=== PATIENT | female | born 1960 | race Caucasian/White ===

== ENCOUNTER → 2018-10-04 | Outpatient (CLI) | payer OTHER ==
--- NOTE | 2018-10-04 16:26 | KCIC ---
3 views left foot HISTORY: Increasing pain in the plantar foot for 6 years. Stepped on foreign object AP lateral oblique views left foot There is mild degenerative plantar spurring of the calcaneus. The visualized osseous structures appear grossly intact. There is small radiopacities within the lateral plantar aspect of the cuboid. IMPRESSION: 1. Small radiopacities in the cuboid could be a foreign body or could be calcification from prior injury. 2. Otherwise no acute findings. Electronically signed by: Elijah Fuller III, MD (10/04/2018 4:23 PM) [facility]
== END | disposition home or self-care (01) ==
LOC: KCIC 15:56
PROVIDERS: ATTEND Family Medicine
DX: M77.32 Calcaneal spur, left foot (principal); W22.8XXA Striking against or struck by other objects, initial encounter; Y93.89 Activity, other specified; Y92.89 Other specified places as the place of occurrence of the external cause; Y99.8 Other external cause status
CPT/HCPCS: 73630

== ENCOUNTER 2019-04-14 08:56 | Day surgery (SDC) | payer MEDICAID ==
[~2019-04-14 08:56] MED LIST: HYDROmorphone 2 MG/ML VIAL IV PRN; IV RINGERS,LACTATED 1000ML 1,000 ML IV SCH; LIDOCAINE 1% PF 2 ML VIAL. ID PRN; MORPHINE SULFATE 2 MG/ML VIAL. IV PRN; ONDANSETRON PF 4 MG/2 ML VIAL. IV PRN; PROCHLORPERAZINE 10 MG/2 ML VIAL. IV PRN; fentaNYL PF VIAL 100 MCG/2 ML VIAL IV PRN
--- NOTE | 2019-04-14 09:07 | DISCH ---
DISCHARGE INSTRUCTIONS Condition on Discharge Condition on Discharge: Stable Activity After Discharge Activity Instructions for Disc: Other, see below Other activity instructions: no athletics or exercise for 6 weeks Weight Bearing Status after Di: As tolerated Diet after Discharge Diet after Discharge: Regular Wound Incision Care Wound/Incision Care: Ice to area for comfort, Keep wound/cast CDI, Change dressing Other wound/incision instructi: ok to change dressing after [address] after DC Call your doctor for: Concerns you may have Follow-Up Follow up with: Krystin in 2 wks ELOY GUPTA II, MD Apr 14, 2019 09:07
[2019-04-14] MEDS ORDERED: IV RINGERS,LACTATED 1000ML 1,000 ML IV SCH (09:45)
[2019-04-14] MEDS ORDERED: BUPIVACAINE MPF 0.5% 30 ML VIAL. ONE (11:50)
[2019-04-14] MEDS ORDERED: LIDOCAINE 1% PF 30 ML VIAL. ONE (11:50)
[2019-04-14] MEDS ORDERED: FAMOTIDINE 20 MG/2 ML VIAL ONE (11:56)
[2019-04-14] MEDS ORDERED: PROPOFOL 20 ML IV ONE (11:56)
[2019-04-14] MEDS ORDERED: ONDANSETRON PF 4 MG/2 ML VIAL. ONE (11:56)
[2019-04-14] MEDS ORDERED: KETOROLAC 30 MG/ML VIAL. ONE (11:56)
[2019-04-14] MEDS ORDERED: MIDAZOLAM HCL/PF 2 MG/2 ML VIAL. ONE (11:56)
[2019-04-14] MEDS ORDERED: LIDOCAINE 2% PF 5 ML VIAL. ONE (11:56)
[2019-04-14] MEDS ORDERED: PHENYLEPHRINE in 0.9% NACL PF 1 MG/10 ML SYRINGE. IV ONE (12:38)
--- NOTE | 2019-04-14 12:46 | PDOC4 ---
Operative Note Operative Note Date of procedure: 04/14/2019 Surgeon: Obi Brandon.: none Preoperative diagnosis: Painful hardware after ankle surgery Postoperative diagnosis: Same Procedure performed: Right ankle medial hardware removal Anesthesia: Gen. Tourniquet time: 22 min Blood loss: 5mL Findings: fibrotic tissue around hardware Components removed: steel wire, 1 screw, 2 k wires Reason for procedure: Patient is a very pleasant female who had operative fixation of an ankle fracture and had pain medially. She denied any pain or concerns laterally. She had no tenderness laterally. All of her tenderness was medial. Given the interference with her activities of daily living, we discussed hardware removal and she wished to proceed. Description of procedure: Patient was greeted in the preoperative holding area by myself for the correct extremity was verified as well as the location of her pain. Antibiotics were started and she was brought back to the operating room. Once in the operative room, she was transferred gently supine to the operating table and secured the bed with all pressure points padded. Nonsterile tourniquet was taped in place to her operative extremity. The operative extremity was prepped and draped in our usual sterile fashion and we conducted our standard preoperative timeout. Esmarch was used to exsanguinate the extremity and tourniquet insufflated to 250 mmHg. After this, I incised skin through her prior skin incision laterally and dissected subcutaneous tissue with electrocautery, cauterizing bleeders as a were encountered. Fascia was incised in line with the skin incision. I used a periosteal elevator to expose the hardware, there was fibrotic tissue that was adherent to it. I then cut the K wire and used a Rominger to remove this. Identified the screw and remove this without complication. After this, used a vice recruiting scheduler to pull the K wires. I then used a small curet to curet out the screw hole. I then irrigated out the operative field with sterile fluid. After this, I close fascia with simple interrupted 0 Vicryl. I then closed subcutaneous tissue with inverted interrupted 2-0 Vicryl followed by 3-0 nylon in a mattress fashion for skin. I then injected local anesthetic into the colten-incisional soft tissues. All counts correct 2 prior to wound closure. No complications. A soft bulky dressing was then applied. She was awakened from anesthesia and tolerated surgery well. She was then transferred gently supine to the recovery room cart and taken to PACU in a stable and x-ray condition. Postoperative plan is to allow weightbearing as tolerated, no athletics or exercises for 6 weeks. Ill see her back in 2 weeks, sooner should a problem arise. OBI GUPTA II, MD Apr 14, 2019 12:46
[2019-04-14] MEDS ORDERED: SEVOFLURANE 31 TO 60 MINUTES. IH ONE (12:53)
[2019-04-14] MEDS ORDERED: DOCU-109 PO (13:05)
[2019-04-14] MEDS ORDERED: HYDR-2765 PO (13:05)
[2019-04-14] MEDS ORDERED: ONDA8TAB9 PO/SL (13:07)
[2019-04-14] MEDS ORDERED: HYDROcodone/APAP 7.5/325MG 1 TAB TABLET PO ONE (13:30)
[2019-04-14 14:04] VITALS: BP 144/77
== END 2019-04-14 14:39 | disposition home or self-care (01) ==
LOC: SURG 08:56
PROVIDERS: ATTEND Orthopaedic Surgery Sports Medicine
DX: T84.84XA Pain due to internal orthopedic prosthetic devices, implants and grafts, initial encounter (principal); I10 Essential (primary) hypertension; E78.00 Pure hypercholesterolemia, unspecified; G62.9 Polyneuropathy, unspecified; E66.3 Overweight; Z68.27 Body mass index [BMI] 27.0-27.9, adult; Z98.890 Other specified postprocedural states; Y83.8 Other surgical procedures as the cause of abnormal reaction of the patient, or of later complication, without mention of misadventure at the time of the procedure; Y92.89 Other specified places as the place of occurrence of the external cause
CPT/HCPCS: 20680; 76000; A7015; J0690; J1885; J2001; J2250; J2370; J2405; J2704; J3010; J3490

== ENCOUNTER → 2019-08-28 | Outpatient (CLI) | payer MEDICAID ==
[~2019-08-28] MED LIST changes: +DOCU-109 PO; +HYDR-2765 PO; -HYDROmorphone 2 MG/ML VIAL IV PRN; -IV RINGERS,LACTATED 1000ML 1,000 ML IV SCH; -LIDOCAINE 1% PF 2 ML VIAL. ID PRN; -MORPHINE SULFATE 2 MG/ML VIAL. IV PRN; +ONDA8TAB9 PO/SL; -ONDANSETRON PF 4 MG/2 ML VIAL. IV PRN; -PROCHLORPERAZINE 10 MG/2 ML VIAL. IV PRN; -fentaNYL PF VIAL 100 MCG/2 ML VIAL IV PRN
--- NOTE | 2019-08-28 12:02 | RAD ---
EXAM: Brain MRI without contrast. HISTORY: Epilepsy. TECHNIQUE: Multiplanar, multisequence magnetic resonance imaging of the brain was performed without contrast. COMPARISON: None. FINDINGS: There is no restricted diffusion to suggest acute or subacute infarction. There is no susceptibility effect to suggest hemorrhage. There is no mass effect or midline shift. There is no hydrocephalus. There are few tiny foci of signal change within the cerebral white matter, most commonly due to chronic small vessel disease in patients of this age. The orbits are unremarkable. There is severe left and mild right maxillary and moderate bilateral ethmoid sinus mucosal thickening. There are maxillary sinus mucous retention cyst. There is a tiny air-fluid level within the sphenoid sinus. There is a small amount of fluid the mastoid air cells. There are normal flow voids within the cerebral vessels. There is slight subependymoma nodularity on axial images which is due to imaging artifact. No heterotopia is seen. There is slight relative decreased size of the left hippocampus. IMPRESSION: 1. No acute intracranial finding. 2. Few tiny foci of signal change within the cerebral white matter. This is most commonly due to chronic small vessel disease in patients of this age. 3. Slight relative decreased size of the left hippocampus. This is only appreciated on coronal T2-weighted images. No corresponding signal abnormality is seen. However, the possibility of mesial temporal sclerosis is not completely excluded in this patient with reported epilepsy. Correlate with EEG localizing findings. Electronically signed by: Swetha Garcia MD (08/28/2019 11:59 AM) [id number]
== END | disposition home or self-care (01) ==
LOC: MRI 11:09
PROVIDERS: ATTEND Psychiatry & Neurology Neurology with Special Qualifications in Child Neurology
DX: I67.89 Other cerebrovascular disease (principal); G40.409 Other generalized epilepsy and epileptic syndromes, not intractable, without status epilepticus; D43.2 Neoplasm of uncertain behavior of brain, unspecified; J34.89 Other specified disorders of nose and nasal sinuses; J34.1 Cyst and mucocele of nose and nasal sinus
CPT/HCPCS: 70551

== ENCOUNTER → 2019-08-29 | Outpatient (CLI) | payer MEDICAID ==
--- NOTE | 2019-08-29 11:29 | EEG ---
DATE OF SERVICE: 08/29/2019 EEG NUMBER: [id number]. OBJECTIVE: The patient is a 59-year-old female with history of tremors and possible seizures, suspicion of nonepileptic seizures. DESCRIPTION: This is a digital study. Electrodes are placed according to international 10-20 system. Bipolar and referential montages are available. Activation procedures typically include hyperventilation and intermittent photic stimulation. INTERPRETATION: The waking background consists of 9-10 Hz, 50-100 microvolt activity, symmetrically distributed over parietooccipital regions and reactive to eye opening. Hyperventilation and intermittent photic stimulation are noncontributory. Stage 1 sleep is achieved with normal electroencephalogram patterns. All computer identified abnormalities are reviewed in detail and none are truly abnormal. IMPRESSION: This electroencephalogram with the patient awake and asleep is within normal limits. There is no focal, paroxysmal or epileptiform activity. Thank you for letting us help with the patient's care. KEYON FOSTER MD DR: ISATU/daniel JOB#: [id number] / [id number]
== END | disposition home or self-care (01) ==
LOC: RT 09:35
PROVIDERS: ATTEND Psychiatry & Neurology Neurology with Special Qualifications in Child Neurology
DX: G40.309 Generalized idiopathic epilepsy and epileptic syndromes, not intractable, without status epilepticus (principal)
CPT/HCPCS: 95816

== ENCOUNTER 2020-01-10 23:41 | Inpatient (IN) | payer MEDICAID ==
[~2020-01-10] VITALS: Ht 170.2 cm; Wt 78.5 kg
[2020-01-10 23:58] LABS: BASO % 0 % (0-3); EOS % 0 % (0-3); HEMOGLOBIN 12.6 g/dL (12.0-15.5); LYMPH % 9 % (24-48); MEAN CORPUSCULAR HEMOGLOBIN 31 pg (25-35); MEAN CORPUSCULAR HGB CONC 34 g/dL (31-37); MEAN CORPUSCULAR VOLUME 91 fL (79-100); MONO # 0.8 x10^3/uL (0.0-1.1); MONO % 7 % (0-9); NEUT % 83 % (31-73); PLATELET COUNT 169 x10^3/uL (140-400); RED BLOOD COUNT 4.07 x10^6/uL (3.50-5.40); RED CELL DISTRIBUTION WIDTH 13.9 % (11.5-14.5); WHITE BLOOD COUNT 10.8 x10^3/uL (4.0-11.0)
--- NOTE | 2020-01-11 00:08 | PHYS DOC ---
Past Medical History Past Medical History: Seizure Past Medical History Limited secondary to altered mental status/post-ictal state Past Surgical History Limited secondary to altered mental status/post-ictal state Social History Limited secondary to altered mental status/post-ictal state General Adult EDM: Chief Complaint: SEIZURE HPI: HPI: Patient is a 59 year old female with pmh of seizure disorder presents via EMS wi th report of active seizures since 2100 this evening. EMS reports family reported that patient had approximately "20 seizures" prior to them calling EMS. EMS reports patient was post-ictal upon their arrival. Patient subsequently started to have some seizure like activity at which time EMS gave 5mg of Versed. No further seizure like activity. EMS reports patient with significantly decreased mentation since giving Versed. EMS unclear what medications patient is on or if she is compliant with them. NO history of known trauma. History of present illness limited secondary to altered mental status/post-ictal state Review of Systems: Review of Systems: Review of systems limited secondary to altered mental status/post-ictal state Current Medications: Current Medications Medications (Trade) Dose Ordered Sig/Roxanne Start Time Stop Time Status Last Admin Dose Admin Sodium Chloride 1,000 ml @ 1,000 mls/hr 1X ONCE 01/11/20 00:00 01/11/20 00:59 Allergies: Allergies: Allergies Coded Allergies Type Severity Reaction Last Updated Verified No Known Drug Allergies 04/14/19 No Physical Exam: PE: Constitutional: Well developed, well nourished, obtunded HENT: Normocephalic, atraumatic, oropharynx moist, gag intact Eyes: Pupils pinpoint, conjunctiva normal, no discharge Neck: Normal range of motion, supple Lungs & Thorax: No respiratory distress, equal chest rise and fall Abdomen: Soft, no tenderness Skin: Warm, dry, no erythema, no rash Extremities: No deformity, no edema Neurologic: GCS 8 (eye1, verbal 2, motor 5), sedated Psychologic: Limited given altered mental status, judgment abnormal Current Patient Data: Labs: Laboratory Tests Test 01/10/20 23:50 White Blood Count 10.8 x10^3/uL (4.0-11.0) Red Blood Count 4.07 x10^6/uL (3.50-5.40) Hemoglobin 12.6 g/dL (12.0-15.5) Hematocrit 37.0 % (36.0-47.0) Mean Corpuscular Volume 91 fL (79-100) Mean Corpuscular Hemoglobin 31 pg (25-35) Mean Corpuscular Hemoglobin Concent 34 g/dL (31-37) Red Cell Distribution Width 13.9 % (11.5-14.5) Platelet Count 169 x10^3/uL (140-400) Neutrophils (%) (Auto) 83 % (31-73) H Lymphocytes (%) (Auto) 9 % (24-48) L Monocytes (%) (Auto) 7 % (0-9) Eosinophils (%) (Auto) 0 % (0-3) Basophils (%) (Auto) 0 % (0-3) Neutrophils # (Auto) 9.0 x10^3/uL (1.8-7.7) H Lymphocytes # (Auto) 1.0 x10^3/uL (1.0-4.8) Monocytes # (Auto) 0.8 x10^3/uL (0.0-1.1) Eosinophils # (Auto) 0.0 x10^3/uL (0.0-0.7) Basophils # (Auto) 0.0 x10^3/uL (0.0-0.2) Laboratory Tests 01/10/20 23:50 EKG: EKG: @2359 Sinus tachycardia at 103bpm, NO ST elevation, QRS 76ms, QT/QTc 320/421ms Radiology/Procedures: Radiology/Procedures: PROCEDURE: CT HEAD WO CONTRAST INDICATION: Reason: frequent seizure like activity / Spl. Instructions: / History: COMPARISON: MRI from August 28, 2019 TECHNIQUE: Axial CT images obtained through the head without intravenous contrast. One or more of the following individualized dose reduction techniques were utilized for this examination: 1. Automated exposure control; 2. Adjustment of the mA and/or kV according to patient size; 3. Use of iterative reconstruction technique. FINDINGS: No intracranial hemorrhage. No midline shift. Basal cisterns patents. Ventricles and sulci are globally prominent. No acute osseous abnormality. Opacification partially seen right maxillary sinus. Scattered foci of low attenuation within the white matter. IMPRESSION: 1. No acute intracranial hemorrhage. 2. Scattered regions of low attenuation within the white matter. Non-specific in nature but frequently secondary to chronic small vessel ischemic disease. 3. Prominence of ventricles and sulci which is frequently secondary to age related volume loss. Electronically signed by: Moe Portillo MD (01/11/2020 12:47 AM) [id number] Course & Med Decision Making: Course & Med Decision Making Pertinent Labs and Imaging studies reviewed. (See chart for details) Patient presents via EMS with report of multiple seizures that started at approximately 2100. Patient apparently has history of seizure disorder. It is unclear what medication she is currently treated nor if she is compliant. Patient appears sedated upon arrival. History of patient receiving 5 mg of Versed prior to arrival. Mentation limited. CT head without acute process. EKG stable. Labs obtained and posted to chart. Lactic acid elevated consistent for seizure activity. Hypomagnesemia addressed. Valproic acid in therapeutic range. Patient with some improvement of mentation, however still appears post-ictal. Given reported number of seizures in short period of time and prolonged post- ictal state, will admit patient for further evaluation and neurology consultation. Patient requiring admission for further evaluation and treatment. Discussed with Dr. Borges (hospitalist) who is in agreement with admission. Consult placed for neurology. Discussed findings and plan with family, who acknowledge understanding and agreement. Wilson Disclaimer: Wilson Disclaimer: This electronic medical record was generated, in whole or in part, using a voice recognition dictation system. Departure Departure Impression: Primary Impression: Breakthrough seizure Additional Impressions: Hypomagnesemia Lactic acidosis Disposition: ADMITTED INPATIENT Admitting Physician: WANDA (Jony) Condition: STABLE Referrals: AYDEN KHANNA MD (PCP) Justicifation of Admission Dx: Justifications for Admission: Justification of Admission Dx: Yes Comments: Breakthrough Seizures TYLER KEARNEY DO Jan 11, 2020 00:08
[2020-01-11 00:09] LABS: CALCIUM 8.8 mg/dL (8.5-10.1); CREATININE 0.7 mg/dL (0.6-1.0); GFR 85.4; POTASSIUM 3.6 mmol/L (3.5-5.1)
[2020-01-11 00:15] LABS: ALBUMIN 3.8 g/dL (3.4-5.0); ALBUMIN/GLOBULIN RATIO 1.2 (1.0-1.7); MAGNESIUM 1.6 mg/dL (1.8-2.4); TOTAL BILIRUBIN 0.4 mg/dL (0.2-1.0); TOTAL PROTEIN 7.1 g/dL (6.4-8.2)
[2020-01-11 00:21] LABS: BILIRUBIN,URINE NEGATIVE (NEG); CLARITY,URINE CLEAR; COLOR,URINE YELLOW; NITRITE,URINE NEGATIVE (NEG); PROTEIN,URINE >=300 mg/dL (NEG-TRACE); UROBILINOGEN,URINE 0.2 mg/dL (0.2 mg/dL)
[2020-01-11 00:36] LABS: SQUAMOUS EPITHELIAL CELL,UR FEW /LPF
[2020-01-11 00:37] LABS: AMORPHOUS SEDIMENT,UR PRESENT /HPF; BACTERIA,URINE 0 /HPF (0-FEW); HYALINE CASTS, URINE MODERATE /HPF; RBC,URINE RARE /HPF (0-2); WBC,URINE 0 /HPF (0-4)
--- NOTE | 2020-01-11 00:50 | RAD ---
INDICATION: Reason: frequent seizure like activity / Spl. Instructions: / History: COMPARISON: MRI from August 28, 2019 TECHNIQUE: Axial CT images obtained through the head without intravenous contrast. One or more of the following individualized dose reduction techniques were utilized for this examination: 1. Automated exposure control; 2. Adjustment of the mA and/or kV according to patient size; 3. Use of iterative reconstruction technique. FINDINGS: No intracranial hemorrhage. No midline shift. Basal cisterns patents. Ventricles and sulci are globally prominent. No acute osseous abnormality. Opacification partially seen right maxillary sinus. Scattered foci of low attenuation within the white matter. IMPRESSION: 1. No acute intracranial hemorrhage. 2. Scattered regions of low attenuation within the white matter. Non-specific in nature but frequently secondary to chronic small vessel ischemic disease. 3. Prominence of ventricles and sulci which is frequently secondary to age related volume loss. Electronically signed by: Moe Portillo MD (01/11/2020 12:47 AM) [id number]
[2020-01-11] MEDS ORDERED: ONDANSETRON PF 4 MG/2 ML VIAL. IV PRN (01:00)
[2020-01-11] MEDS ORDERED: IV NORMAL SALINE 1000ML BAG 1,000 ML IV ONE ×3 (01:00→01:30)
[2020-01-11] MEDS ORDERED: MAGNESIUM SULFATE 2GM 50 ML IV ONE (01:00)
[2020-01-11 01:08] LABS: VAL ACID 55 mcg/mL (50-100)
--- NOTE | 2020-01-11 02:05 | NUR ---
The patient, MILO BIRMINGHAM, 59 y/o, F admitted by GABBY GRAF MD, was given written information regarding hospital policies, unit procedures and contact persons. Valuables were checked and placed in closet. Pt awakens to stimuli, but quickly falls back to sleep. Pt unable to complete med rec at this time. Seizure precautions in place. Will monitor.
[2020-01-11 03:00] VITALS: BP 107/53
[2020-01-11 07:59] VITALS: BP 145/66
[2020-01-11 11:59] VITALS: BP 133/73
--- NOTE | 2020-01-11 12:48 | SSS ---
ADMIT DATE: 01/11/2020 CHIEF COMPLAINT: Seizure. HISTORY OF PRESENT ILLNESS: The patient is a pleasant 59-year-old female who has had seizures for many years. She is on valproic acid for that. Basically, she had 20 seizures yesterday. They finally called the ambulance. When she got the ambulance, she had no seizure. They gave her 5 of Versed. She has had no more seizures since, but she is very postictal. The patient has been admitted. We are consulting Neurology. We are going to be adjusting her seizure medications. PAST MEDICAL HISTORY: Seizures, arthritis, constipation. ALLERGIES: None. FAMILY HISTORY: Diabetes. SOCIAL HISTORY: She does not drink, smoke or take drugs. MEDICATIONS: Reviewed, please refer to the MRAD. REVIEW OF SYSTEMS: Unable to obtain. The patient is postictal. PHYSICAL EXAMINATION: VITALS: Within normal limits and are stable. GENERAL: She is sleeping. HEENT: Normal cephalic atraumatic, external auditory canals are patent EYES: Extraocular muscles are intact, pupils are equally round and reactive to light and accommodation MUSCULOSKELETAL: Well developed, well nourished, good range of motion ENDOCRINE: No thyromegaly was palpated LYMPHATICS: No cervical chain or axillary nodes were noted HEMATOPOIETIC: No bruising NECK: Supple, no JVD, no thyromegaly was noted. LUNGS: Clear to auscultation in all lung davis without rhonchi or wheezing. HEART: RRR, S1, S2 present. Peripheral pulses intact, no obvious murmurs were noted. ABDOMEN: Soft, nontender. Positive bowel sounds no organomegaly, normal bowel sounds. EXTREMITIES: Without any cyanosis, clubbing, or edema. Pedal pulses intact, Homans sign is negative. NEUROLOGIC: She really does not respond much other than open her eyes briefly. PSYCHIATRIC: She is sleeping. SKIN: No ulcerations or rashes, good skin turgor, no jaundice. VASCULAR: Good capillary refill, neurovascular bundle appears to be intact. IMAGING: CT of the head, no acute changes. LABORATORY DATA: White count 10, hemoglobin 12, platelets 169. Electrolytes are normal other than sodium of 132, chloride of 96 and glucose of 179. Lactic acid was slightly high at 2.2, is back down to 1.2 now. Magnesium slightly low at 1.6. ASSESSMENT AND PLAN: Acute on chronic seizures with finding of some hypomagnesemia, hyponatremia and mild lactic acidosis. Basically, we need to admit the patient and do some seizure precautions. Adjust her meds. Consult Neurology. Home medications, deep vein thrombosis prophylaxis. Full code. Replace her magnesium. I discussed the case with the family and the nurse. AMBER BAUTISTA DO DR: FERNANDA/daniel JOB#: [id number] / [id number]
[2020-01-11 15:59] VITALS: BP_SYST 105; BP_SYST 152; BP_DIAS 66; BP_DIAS 72
[2020-01-11 19:00] VITALS: BP 148/73
[2020-01-11] MEDS: DIVALPROEX DELAYED RELEASE 500 MG TABLET.DR. PO SCH (20:03)
--- NOTE | 2020-01-11 20:10 | CONS ---
DATE OF CONSULTATION: 01/11/2020 REFERRING PHYSICIAN: Ya Nieto DO REASON FOR CONSULTATION: Recurrent status epilepticus. HISTORY OF PRESENT ILLNESS: The patient is a 59-year-old woman with a long history of seizures for which she has been maintained on Depakote. According to family, she had 20 seizures today, although no family members are available to provide a description. They called an ambulance. When the ambulance arrived, she was not seizing. They gave her 5 of Versed. She has had no further seizures since being admitted. According to the nurse when she was admitted earlier this morning, she was very out of it and postictal, but this could have been Versed. She has not had any further seizures reported today. She did have a Depakote level, which was low therapeutic at 55. She has not had any further Depakote today. PAST MEDICAL HISTORY: 1. Seizure disorder. 2. Arthritis. 3. Constipation. ALLERGIES: No known allergies to drugs. MEDICATIONS PRIOR TO ADMISSION: We do not have a complete list at this time, but according to the nursing staff, she is waiting for confirmation from the family to get a look at the pill bottles. They believe she is on Depakote 500 mg 3 times per day. FAMILY HISTORY: Pertinent for diabetes. SOCIAL HISTORY: She does not smoke tobacco, drink alcohol or use recreational drugs. REVIEW OF SYSTEMS: Unobtainable. PHYSICAL EXAMINATION: VITAL SIGNS: The blood pressure was 152/66, pulse 99, respirations 18, temperature 98.5 orally degrees Fahrenheit. Oximetry was 98% on room air. Her weight was 78.5 kilograms, height 67 inches with a calculated body mass index of 27.1. GENERAL: She was alert, awake and cooperative. She spoke Welsh. She seemed somewhat bewildered, but was quite alert and interactive and willing to cooperate. She was able to sit on the side of the bed and had good balance. She appeared well groomed and well nourished. NEUROLOGIC: Examination of the cranial nerves revealed visual davis appeared intact to visual threat. Extraocular movements were intact. The eyes were conjugate. Pupils were 3 mm. Funduscopic exam did not reveal papilledema. Facial sensation was intact to sharp. The muscles of mastication and facial expression were symmetric. Hearing was intact to finger rub. The palate arched symmetrically and the tongue was midline with full motion. Shoulder shrug was symmetric. Muscle bulk and tone was normal. There was no drift. Power appeared full and symmetric. Reflexes 2/4 and symmetric in the upper extremities, diminished in knees and ankles. Toes were not upgoing. Coordination testing with [id number] was well performed. Fine motor tapping was also symmetric and well performed. Sensory exam was intact to sharp, cold thermal, vibration and light touch. LABORATORY RESULTS: CBC was performed 01/10/2020 revealing a normal white blood cell count, hemoglobin, hematocrit and platelet count. Chemistries were performed 01/10/2020. Sodium was low at 132. Potassium was normal. Chloride was low at 96, CO2 was normal. BUN and creatinine were normal with a GFR that calculated at 85.4. Glucose was elevated at 179. Calcium was normal. Lactic acid was initially elevated at 2.2, but this came down to 1.2. Magnesium was low at 1.6. Liver enzymes were not elevated. Total protein and albumin were normal. Depakote level was measured 01/10/2020 at 2350 and was 55. Urinalysis was performed 01/11/2020 revealing greater than 300 mg/dL of protein, 15 ketones, trace blood, rare red blood cells, few squamous epithelial cells and moderate hyaline casts. IMAGING: A CT scan of the head was performed 01/11/2020 without contrast and compared to 08/28/2019. She had no acute intracranial process. There was some chronic small vessel disease. There was some age-related atrophy. IMPRESSION: The patient is a 59-year-old woman with a seizure disorder, which is treated with Depakote. According to family, she had 20 seizures today, although I do not have a description of the seizures. She did have elevated lactic acidosis, which has normalized. She was therapeutic on Depakote, but at the lower end. Neurologic exam was nonfocal. CT scan of the head was negative. RECOMMENDATIONS: If in fact she was on Depakote 1500 per day, then I will increase this to 2000 mg a day. We can use the sustained release instead of the extended release into 1000 mg twice per day. I will give her 1000 mg now and resume 1000 mg twice a day starting in the morning. Depakote level could be obtained in a week or 10 days once at steady state to make sure she is not getting supratherapeutic. She can always follow up with Neurology as an outpatient. EDUARDO CARLSON MD DR: RANDELL/daniel JOB#: [id number] / [id number]
[2020-01-11] MEDS ORDERED: ATOR20TA58 PO (20:13)
[2020-01-11] MEDS ORDERED: LISI-334 PO (20:13)
[2020-01-11] MEDS ORDERED: DIVA500T2 PO (20:13)
[2020-01-11 23:03] VITALS: BP 161/87
[2020-01-12 03:04] VITALS: BP 149/76
[2020-01-12 07:00] VITALS: BP 137/78
[2020-01-12] MEDS: DIVALPROEX DELAYED RELEASE 500 MG TABLET.DR. PO SCH (08:43)
--- NOTE | 2020-01-12 09:44 | PDOC ---
PROGRESS NOTES Assessment Problems Medical Problems: (1) Breakthrough seizure Status: Acute (2) Lactic acidosis Status: Acute Possible seizures, note that she most likely has psychogenic nonepileptic seizure based on prior workup.MRI on 08/28/19 was negative, EEG on 08/29/19 was negative, she also had workup in [place], but I never received the actual record History of intellectual disability. Lactic acidosis, which raises concern that she actually had seizures. Plan Okay for discharge on the higher Depakote dose Family to call me if she develops any symptoms of toxicity. Follow-up with me in 4-6 weeks. Subjective Denies complaints Objective Vital Signs Date Time Temp Pulse Resp B/P (MAP) Pulse Ox O2 Delivery O2 Flow Rate FiO2 01/12/20 08:00 Room Air 01/12/20 07:00 98.7 82 17 137/78 (97) 99 98.7 Intake and Output 01/12/20 07:00 Intake Total 1620 ml Balance 1620 ml Intake Oral 620 ml IV Total 1000 ml # Voids 4 PHYSICAL EXAM Alert. Oriented only to person, speaks only Liberian. PERRL. EOMI. CN: no focal findings. Muscle tone: normal. Muscle strength: 4/5 DTR: 1+ Plantar reflex: flexor Gait: not examined in bed. Sensory exam: no abnormal findings. No cerebellar signs elicited. Review of Relevant I have reviewed the following items cornelius (where applicable) has been applied. Labs Laboratory Tests Test 01/10/20 23:50 01/11/20 00:12 01/11/20 03:20 White Blood Count 10.8 x10^3/uL (4.0-11.0) Red Blood Count 4.07 x10^6/uL (3.50-5.40) Hemoglobin 12.6 g/dL (12.0-15.5) Hematocrit 37.0 % (36.0-47.0) Mean Corpuscular Volume 91 fL (79-100) Mean Corpuscular Hemoglobin 31 pg (25-35) Mean Corpuscular Hemoglobin Concent 34 g/dL (31-37) Red Cell Distribution Width 13.9 % (11.5-14.5) Platelet Count 169 x10^3/uL (140-400) Neutrophils (%) (Auto) 83 % (31-73) Lymphocytes (%) (Auto) 9 % (24-48) Monocytes (%) (Auto) 7 % (0-9) Eosinophils (%) (Auto) 0 % (0-3) Basophils (%) (Auto) 0 % (0-3) Neutrophils # (Auto) 9.0 x10^3/uL (1.8-7.7) Lymphocytes # (Auto) 1.0 x10^3/uL (1.0-4.8) Monocytes # (Auto) 0.8 x10^3/uL (0.0-1.1) Eosinophils # (Auto) 0.0 x10^3/uL (0.0-0.7) Basophils # (Auto) 0.0 x10^3/uL (0.0-0.2) Sodium Level 132 mmol/L (136-145) Potassium Level 3.6 mmol/L (3.5-5.1) Chloride Level 96 mmol/L (98-107) Carbon Dioxide Level 26 mmol/L (21-32) Anion Gap 10 (6-14) Blood Urea Nitrogen 9 mg/dL (7-20) Creatinine 0.7 mg/dL (0.6-1.0) Estimated GFR (Cockcroft-Gault) 85.4 BUN/Creatinine Ratio 13 (6-20) Glucose Level 179 mg/dL (70-99) Lactic Acid Level 2.2 mmol/L (0.4-2.0) 1.2 mmol/L (0.4-2.0) Calcium Level 8.8 mg/dL (8.5-10.1) Magnesium Level 1.6 mg/dL (1.8-2.4) Total Bilirubin 0.4 mg/dL (0.2-1.0) Aspartate Amino Transf (AST/SGOT) 18 U/L (15-37) Alanine Aminotransferase (ALT/SGPT) 25 U/L (14-59) Alkaline Phosphatase 61 U/L (46-116) Creatine Kinase 103 U/L (26-192) Total Protein 7.1 g/dL (6.4-8.2) Albumin 3.8 g/dL (3.4-5.0) Albumin/Globulin Ratio 1.2 (1.0-1.7) Valproic Acid (Depakene) Level 55 mcg/mL (50-100) Valproic Acid Last Dose Date Unk Valproic Acid Last Dose Time Unk Urine Collection Type Unknown Urine Color Yellow Urine Clarity Clear Urine pH 5.0 (<5.0-8.0) Urine Specific [place] 1.020 (1.000-1.030) Urine Protein >=300 mg/dL (NEG-TRACE) Urine Glucose (UA) Negative mg/dL (NEG) Urine Ketones (Stick) 15 mg/dL (NEG) Urine Blood Trace (NEG) Urine Nitrite Negative (NEG) Urine Bilirubin Negative (NEG) Urine Urobilinogen Dipstick 0.2 mg/dL (0.2 mg/dL) Urine Leukocyte Esterase Negative (NEG) Urine RBC Rare /HPF (0-2) Urine WBC 0 /HPF (0-4) Urine Squamous Epithelial Cells Few /LPF Urine Amorphous Sediment Present /HPF Urine Bacteria 0 /HPF (0-FEW) Urine Hyaline Casts Moderate /HPF Urine Mucus Mod /LPF Medications Current Medications Sodium Chloride 1,000 ml @ 1,000 mls/hr 1X ONCE IV Last administered on 01/11/20at 00:09; Start 01/11/20 at 00:00; Stop 01/11/20 at 00:59; Status DC Sodium Chloride 1,000 ml @ 1,000 mls/hr 1X ONCE IV Last administered on 01/11/20at 01:11; Start 01/11/20 at 01:00; Stop 01/11/20 at 01:59; Status DC Magnesium Sulfate 50 ml @ 25 mls/hr 1X ONCE IV Last administered on 01/11/20at 01:10; Start 01/11/20 at 01:00; Stop 01/11/20 at 02:59; Status DC Ondansetron HCl (Zofran) 4 mg PRN Q8HRS PRN IV NAUSEA/VOMITING 1ST CHOICE; Start 01/11/20 at 01:00; Stop 01/12/20 at 00:59; Status DC Sodium Chloride 1,000 ml @ 100 mls/hr 1X ONCE IV Last administered on 01/11/20at 02:13; Start 01/11/20 at 01:30; Stop 01/11/20 at 11:29; Status DC Divalproex Sodium (Depakote) 1,000 mg BID PO Last administered on 01/12/20at 08:4 3; Start 01/11/20 at 21:00 Active Scripts Active Reported Atorvastatin Calcium 20 Mg Tablet 1 Tab PO DAILY Lisinopril 20 Mg Tablet 1 Tab PO DAILY Depakote (Divalproex Sodium) 500 Mg Tablet.dr 500 Mg PO TID Zofran (Ondansetron Hcl) 8 Mg Tablet 8 Mg PO/SL Q8HRS PRN Colace (Docusate Sodium) 100 Mg Capsule 1 Cap PO BID 30 Days Hydrocodone-Apap 7.5-325 (Hydrocodone Bit/Acetaminophen) 1 Tab Tablet 1 Tab PO Q4HRS PRN Vitals/I & O Vital Sign - Last 24 Hours 01/11/20 01/11/20 01/11/20 01/11/20 11:59 15:59 19:00 19:10 Temp 98.2 98.5 97.4 98.2 98.5 97.4 Pulse 101 99 110 Resp 18 18 20 B/P (MAP) 133/73 (93) 152/66 (94) 148/73 (98) Pulse Ox 98 98 100 O2 Delivery Room Air Room Air Room Air Room Air 01/11/20 01/12/20 01/12/20 01/12/20 23:03 03:04 07:00 08:00 Temp 97.7 98.3 98.7 97.7 98.3 98.7 Pulse 108 91 82 Resp 18 18 17 B/P (MAP) 161/87 (111) 149/76 (100) 137/78 (97) Pulse Ox 97 96 99 O2 Delivery Room Air Room Air Room Air Room Air Intake and Output 01/11/20 01/11/20 01/12/20 15:00 23:00 07:00 Intake Total 1220 ml 200 ml 200 ml Balance 1220 ml 200 ml 200 ml Justicifation of Admission Dx: Justifications for Admission: Justification of Admission Dx: Yes KEYON FOSTER MD Jan 12, 2020 09:44
--- NOTE | 2020-01-12 10:01 | PDOC ---
[facility] PROGRESS NOTE Chief Complaint Chief Complaint Seizures Hypomagnesemia History of Present Illness History of Present Illness 01/12/20 Patient seen and examined Discussed with RN Chart reviewed Vitals/I&O Vitals/I&O: Vital Signs Date Time Temp Pulse Resp B/P (MAP) Pulse Ox O2 Delivery O2 Flow Rate FiO2 01/12/20 08:00 Room Air 01/12/20 07:00 98.7 82 17 137/78 (97) 99 98.7 I & O 01/11/20 01/11/20 01/12/20 15:00 23:00 07:00 Intake Total 1220 ml 200 ml 200 ml Balance 1220 ml 200 ml 200 ml Physical Exam General: Alert, No acute distress Heart: Regular rate Lungs: Clear Extremities: Normal pulses Skin: No significant lesion Assessment and Plan Assessmemt and Plan Problems Medical Problems: (1) Breakthrough seizure Status: Acute (2) Lactic acidosis Status: Acute Assessment: Seizures Status epilepticus Hypomagnesemia Elevated lactic acid Plan: Okay for discharge Depakote dose adjustment Full code Follow up with Dr. Quan in 4-6 wks Appreciate Subspecialist input Comment Review of Relevant I have reviewed the following items cornelius (where applicable) has been applied. Medications: Current Medications Medications (Trade) Dose Ordered Sig/Roxanne Route PRN Reason Start Time Stop Time Status Last Admin Dose Admin Divalproex Sodium (Depakote) 1,000 mg BID PO 01/11/20 21:00 01/12/20 08:43 Justicifation of Admission Dx: Justifications for Admission: Justification of Admission Dx: Yes AMBER BAUTISTA III, DO Jan 12, 2020 10:01
--- NOTE | 2020-01-12 10:11 | NUR ---
SW following. Discussed with RN, pt from home with family, room air, cardiac diet, SBA. RN advised no SW needs, anticipate discharge home today. SW will continue to follow, should any discharge needs arise.
[2020-01-12] MEDS ORDERED: DIVA500T2 PO (10:17)
[2020-01-12 11:00] VITALS: BP 145/69
--- NOTE | 2020-01-12 13:34 | NUR ---
Discharge Note: PT DISCHARGED HOME WITH SELF CARE. PT LEFT FACILITY VIA PRIVATE VEHICLE WITH FAMILY MEMBERS. PT STABLE AND ALERT UPON DISCHARGE. PT PIV'S REMOVED FROM L WRIST AND R FA WITHOUT COMPLICATIONS, BANDAGE APPLIED, TELE MONITOR REMOVED. PT FAMILY EDUCATED ABOUT DISCHARGE INSTRUCTIONS, DISCHARGE MEDICATIONS, AND FOLLOW-UP CARE. FAMILY MEMBER TRANSLATED AT BEDSIDE. NO CONCERNS VOICED AT THIS TIME. ALL QUESTIONS ANSWERED UPON DISCHARGE. MATILDE BIRMINGHAM Discharge instructions and discharge home medications reviewed with Patient and a copy given. All questions have been answered and understanding verbalized.
--- NOTE | 2020-01-13 06:46 | EKG ---
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
--- NOTE | 2020-01-13 08:43 | DS ---
DATE OF DISCHARGE: 01/12/2020 ADMISSION DIAGNOSIS: Seizures. DISCHARGE DIAGNOSIS: Resolving seizure, resolving hypomagnesemia. HOSPITAL COURSE: The patient is a pleasant 59-year-old female who presented with breakthrough seizures despite being on Depakote. We admitted the patient. We did cardiac monitoring and seizure precautions. We consulted Neurology. Neurology increased her Depakote to 1000 b.i.d. Clinically, she is doing much better. Heart tones are normal. Lungs are clear. We discharged her to home. DISPOSITION: Home. ACTIVITY: As tolerated. DIET: Low sodium. MEDICATIONS: Please see MRAD. TOTAL TIME: 32 minutes. OSCARL Sarah BAUTISTA DO DR: FERNANDA/daniel JOB#: [id number] / [id number]
== END 2020-01-12 13:25 | disposition home or self-care (01) | DRG 101 ==
LOC: ER 23:41 → 5 NORTH 01-11 01:40
PROVIDERS: ADMIT Internal Medicine; ATTEND Internal Medicine
DX: G40.901 Epilepsy, unspecified, not intractable, with status epilepticus (principal); E87.1 Hypo-osmolality and hyponatremia; E87.2 Acidosis; E83.42 Hypomagnesemia; M19.90 Unspecified osteoarthritis, unspecified site; Z83.3 Family history of diabetes mellitus
CPT/HCPCS: 36415; 70450; 80053; 80164; 81001; 82550; 83605; 83735; 85025; 93005; 96361; 96365; 99285; J3475; J7030; G0378